=== PATIENT | male | born 1970 | race Caucasian/White ===

== ENCOUNTER 2019-11-28 12:13 | Emergency (ER) | payer MEDICAID, OTHER ==
[~2019-11-28] VITALS: Ht 165.1 cm; Wt 65.5 kg
[~2019-11-28 12:13] MED LIST: NO HOME MEDS
[2019-11-28] MEDS ORDERED: LIDOcaine 1% W/epiNEPHrine 1:200,000 10ml vial IJ ONE (12:35)
[2019-11-28] MEDS ORDERED: BACDS PO (12:54)
[2019-11-28] MEDS ORDERED: CEPH250T PO (12:54)
[2019-11-28 14:15] VITALS: BP 131/82
== END 2019-11-28 14:18 | disposition home or self-care (01) ==
LOC: ER 12:13
DX: L02.413 Cutaneous abscess of right upper limb (principal); M25.531 Pain in right wrist; M25.431 Effusion, right wrist
CPT/HCPCS: 10060; 99283

== ENCOUNTER 2022-03-19 10:24 | Inpatient (IN) | payer MEDICAID ==
[~2022-03-19] VITALS: Ht 180.3 cm; Wt 63.0 kg
[2022-03-19] MEDS ORDERED: BENZ-38 PO (12:44)
[2022-03-19] MEDS ORDERED: ALBU8HFA PO (12:44)
[2022-03-19 14:13] LABS: URINE AMPHETAMINE SCREEN POSITIVE (Neg); URINE BARBITUATE SCREEN NEGATIVE (Neg); URINE BENZODIAZEPINES SCREEN NEGATIVE (Neg); URINE CANNABINOID SCREEN POSITIVE (Neg); URINE COCAINE SCREEN NEGATIVE (Neg); URINE METHADONE SCREEN NEGATIVE (Neg); URINE OPIATE SCREEN NEGATIVE (Neg); URINE PHENCYCLIDINE SCREEN NEGATIVE (Neg)
[2022-03-19 14:27] LABS: BASOPHILS % (AUTO) 0.2 % (0-1); EOSINOPHILS # (AUTO) 0.1 X10'3 (0-0.9); EOSINOPHILS % (AUTO) 0.4 % (0-6); HEMATOCRIT 36.3 % (42.0-52.0); HEMOGLOBIN 12.1 g/dl (14.0-17.9); LYMPHOCYTES # (AUTO) 1.1 X10'3 (1.1-4.8); LYMPHOCYTES % (AUTO) 5.3 % (21-51); MEAN CORPUSCULAR HEMOGLOBIN 28.8 PG (27.0-31.0); MEAN CORPUSCULAR HGB CONC 33.2 g/dL (33.0-36.5); MEAN CORPUSCULAR VOLUME 86.7 FL (78-98); MEAN PLATELET VOLUME 7.3 FL (7.4-10.4); MONOCYTES # (AUTO) 1.2 X10'3 (0-0.9); MONOCYTES % (AUTO) 5.8 % (2-12); NEUTROPHILS # (AUTO) 18.9 X10'3 (1.8-7.7); NEUTROPHILS % (AUTO) 88.3 % (42-75); PLATELET COUNT 434 X10'3 (140-440); RED BLOOD COUNT 4.19 X10'6 (4.70-6.10); RED CELL DISTRIBUTION WIDTH 13.7 % (11.5-14.5); WHITE BLOOD COUNT 21.4 X10'3 (4.5-11.0)
[2022-03-19 14:31] LABS: D-DIMER 3.84 MG/L FEU (0-0.50)
[2022-03-19 14:34] LABS: ALANINE AMINOTRANSFERASE 43 U/L (12-78); ALBUMIN 2.1 G/DL (3.4-5.0); ALBUMIN/GLOBULIN RATIO 0.5 (1.1-1.5); ALKALINE PHOSPHATASE 106 IU/L (46-116); ANION GAP 5 (8-16); ASPARTATE AMINO TRANSFERASE 32 U/L (10-37); BILIRUBIN,TOTAL 0.4 MG/DL (0.1-1.0); BLOOD UREA NITROGEN 13 MG/DL (7-18); BUN/CREATININE RATIO 18.1 (5.4-32.0); CALCIUM 8.8 MG/DL (8.5-10.1); CHLORIDE 100 MMOL/L (99-107); CREATININE 0.72 MG/DL (0.60-1.10); GLUCOSE 153 MG/DL (70-104); POTASSIUM 3.5 MMOL/L (3.5-5.1); SODIUM 134 MMOL/L (135-145); TOTAL CARBON DIOXIDE 28.8 MMOL/L (24-32); TOTAL PROTEIN 6.1 G/DL (6.4-8.2); eGFR > 90 ML/MIN
[2022-03-19] MEDS ORDERED: normal saline 1000ML IV soln IV ONE (14:55)
[2022-03-19] MEDS ORDERED: CefTRIAXone 2gm/D5W 50ml BAG 50 ML IV ONE (14:55)
--- NOTE | 2022-03-19 15:13 | NUR ---
PT REFUSED IV.
[2022-03-19] MEDS ORDERED: acetaminophen 325mg tablet PO ONE (15:30)
[2022-03-19] MEDS ORDERED: acetaminophen 650mg rectal suppository RC PRN (16:55)
[2022-03-19] MEDS ORDERED: acetaminophen 325mg tablet PO PRN ×2 (16:55)
[2022-03-19] MEDS ORDERED: ondansetron 4mg rapidly disintigrating tab PO PRN (16:55)
[2022-03-19] MEDS ORDERED: potassium Cl 20 mEq SR tablet PO PRN ×2 (16:55)
[2022-03-19] MEDS ORDERED: magnesium 4gm in 100ml NS 100 ML IV PRN (16:55)
[2022-03-19] MEDS ORDERED: magnesium Cl slow-release 64mg tablet PO PRN (16:55)
[2022-03-19] MEDS ORDERED: mag hydrox/Alum hydrox/simeth 30ml oral suspension PO PRN (16:55)
[2022-03-19] MEDS ORDERED: albuterol 2.5 MG/3 ML nebule NEB PRN (16:55)
[2022-03-19] MEDS ORDERED: magnesium hydroxide 30ml (MOM) UD suspension PO PRN (16:55)
[2022-03-19] MEDS ORDERED: potassium Cl 40MEQ/1/2NS 520ml 520 ML IV PRN (16:55)
[2022-03-19] MEDS ORDERED: ondansetron/PF 4mg/2ml inj IV PRN (16:55)
[2022-03-19] MEDS ORDERED: iohexol 350MG/ML 100ml bottle IV ONE (16:57)
--- NOTE | 2022-03-19 17:00 | NUR ---
NOTIFIED PROVIDER OPPEZZO THAT PT COMPLAINS OF 10/10 HEADACHE. PT REPORTS PAIN IN FRONTAL LOBE, ASSOCIATED WITH BLURRED VISION AND DIZZINESS. PT REPORTS SYMPTOMS STARTED 1 WEEK AGO.
[2022-03-19] MEDS ORDERED: azithromycin/NS 500mg/250ml 250 ML IV ONE (17:15)
[2022-03-19] MEDS: normal saline 1000ml 1,000 ML IV SCH ×2 (19:11→20:54)
[2022-03-19] MEDS: docusate sod 100mg capsule PO SCH (19:19)
[2022-03-19] MEDS: K and/or MAG REPLACEMENT MC SCH (19:19)
[2022-03-19] MEDS: enoxaparin 40mg/0.4ml syringe SQ SCH (20:10)
--- NOTE | 2022-03-19 20:15 | NUR ---
Received report from RESEARCH MECHANICDARÍO Norton. Patient to follow shortly.
--- NOTE | 2022-03-19 20:30 | NUR ---
Patient arrived to floor on a gurney. Ambulated to bed. Patient not in any pain or distress at this time, just moaning,groaning and coughing .
[2022-03-19 20:45] VITALS: BP 134/89
[2022-03-19] MEDS ORDERED: temazepam 15mg capsule PO PRN (21:00)
[2022-03-19 22:00] VITALS: BP 144/91
--- NOTE | 2022-03-20 01:08 | NUR ---
When patient first arrived I explained the admit process. Patient did allow for a 2RN skin check and MRSA swab, but then stated, "I just want to sleep please".
--- NOTE | 2022-03-20 01:52 | NUR ---
sputum sample collected and sent to pharmacy.
--- NOTE | 2022-03-20 02:00 | NUR ---
Patient placed on 2L O2 via NC for low sats of 87-90. Sats went up to 95/96%. Will continue to monitor.
--- NOTE | 2022-03-20 06:53 | NUR ---
Patient in room [facility]. I have received report from ELÍAS CHANEL and had the opportunity to ask questions and assume patient care.
[2022-03-20 07:17] VITALS: BP 136/84
[2022-03-20] MEDS: K and/or MAG REPLACEMENT MC SCH ×2 (08:00→20:00)
[2022-03-20] MEDS: azithromycin 250mg tablet PO SCH (08:02)
[2022-03-20] MEDS: docusate sod 100mg capsule PO SCH ×2 (08:02→20:13)
[2022-03-20] MEDS: normal saline 1000ml 1,000 ML IV SCH ×2 (08:03→19:32)
[2022-03-20 11:00] VITALS: BP_SYST 122; BP_SYST 134; BP_DIAS 43; BP_DIAS 73
[2022-03-20] MEDS: CefTRIAXone/D5W-Rocephin 1gm 50 ML IV SCH (14:40)
[2022-03-20 18:00] VITALS: BP 145/101
--- NOTE | 2022-03-20 18:31 | NUR ---
Problems reprioritized. Patient report given, questions answered & plan of care reviewed with Roseanna CHANEL.
--- NOTE | 2022-03-20 18:35 | NUR ---
Patient in room [facility]. I have received report from Yoel CHANEL and had the opportunity to ask questions and assume patient care.
[2022-03-20] MEDS: enoxaparin 40mg/0.4ml syringe SQ SCH (20:15)
[2022-03-20 22:00] VITALS: BP 144/84
[2022-03-20] MEDS ORDERED: LORazepam 2 mg/ml vial IV PRN (23:10)
--- NOTE | 2022-03-21 01:17 | NUR ---
At around 2014, pt. c/o pain to the upper left chest. Stat EKg and troponin taken. No signs of [place]. Patient stated not long after, that the pain had gone.
[2022-03-21] MEDS: normal saline 1000ml 1,000 ML IV SCH ×2 (04:58→18:55)
--- NOTE | 2022-03-21 06:25 | NUR ---
Problems reprioritized. Patient report given, questions answered & plan of care reviewed with Yoel RN.
--- NOTE | 2022-03-21 06:27 | NUR ---
Patient in room [facility]. I have received report from Roseanna CHANEL and had the opportunity to ask questions and assume patient care.
[2022-03-21 06:32] LABS: BASOPHILS # (AUTO) 0.2 X10'3 (0-0.2); EOSINOPHILS # (AUTO) 0.3 X10'3 (0-0.9); HEMATOCRIT 35.6 % (42.0-52.0); LYMPHOCYTES # (AUTO) 1.9 X10'3 (1.1-4.8); LYMPHOCYTES % (AUTO) 11.3 % (21-51); MEAN CORPUSCULAR HEMOGLOBIN 29.3 PG (27.0-31.0); MEAN CORPUSCULAR HGB CONC 33.8 g/dL (33.0-36.5); MEAN CORPUSCULAR VOLUME 86.6 FL (78-98); MEAN PLATELET VOLUME 7.4 FL (7.4-10.4); MONOCYTES # (AUTO) 1.3 X10'3 (0-0.9); MONOCYTES % (AUTO) 7.7 % (2-12); PLATELET COUNT 511 X10'3 (140-440); RED BLOOD COUNT 4.11 X10'6 (4.70-6.10); RED CELL DISTRIBUTION WIDTH 13.9 % (11.5-14.5); WHITE BLOOD COUNT 16.6 X10'3 (4.5-11.0)
[2022-03-21 06:38] VITALS: BP 135/88
[2022-03-21 06:39] LABS: ALANINE AMINOTRANSFERASE 67 U/L (12-78); ALBUMIN 1.8 G/DL (3.4-5.0); ALBUMIN/GLOBULIN RATIO 0.4 (1.1-1.5); ALKALINE PHOSPHATASE 90 IU/L (46-116); ASPARTATE AMINO TRANSFERASE 68 U/L (10-37); BILIRUBIN,TOTAL 0.2 MG/DL (0.1-1.0); BLOOD UREA NITROGEN 11 MG/DL (7-18); BUN/CREATININE RATIO 19.3 (5.4-32.0); CALCIUM 8.7 MG/DL (8.5-10.1); CREATININE 0.57 MG/DL (0.60-1.10); GLUCOSE 101 MG/DL (70-104); MAGNESIUM 1.8 MG/DL (1.5-2.4); TOTAL CARBON DIOXIDE 27.3 MMOL/L (24-32); eGFR > 90 ML/MIN
[2022-03-21 07:05] LABS: ANION GAP 8 (8-16); CHLORIDE 105 MMOL/L (99-107); POTASSIUM 3.7 MMOL/L (3.5-5.1); SODIUM 140 MMOL/L (135-145)
[2022-03-21 07:11] LABS: PLATELET ESTIMATE INCREASED; TOTAL CELLS COUNTED 100
[2022-03-21] MEDS: docusate sod 100mg capsule PO SCH ×2 (07:53→19:23)
[2022-03-21] MEDS: azithromycin 250mg tablet PO SCH (07:54)
[2022-03-21] MEDS: HYDROcodone/acetaminophen 5mg/325mg tablet PO PRN ×3 (07:55→23:48)
[2022-03-21] MEDS: K and/or MAG REPLACEMENT MC SCH ×2 (08:00→20:00)
--- NOTE | 2022-03-21 09:35 | NUR ---
Initial: pt admitted w/ PNA and sepsis per EMR. Currently on Regular diet w/ 100% intake of meals though only partially meeting est protein needs. Will provide double protein BID w/ meals. Pt appears WD/WN per MD note. No edema noted. M 03/20 receiving routine colace. Will continue to monitor. Recs: 1. Continue Regular diet as tolerated 2. Double protein BIDBD 3. Bowel care per rx 4. Scaled wts Addendum: 03/21/22 at [address] Amended: Links added.
[2022-03-21 11:08] VITALS: BP 151/87
[2022-03-21] MEDS: CefTRIAXone/D5W-Rocephin 1gm 50 ML IV SCH (14:29)
[2022-03-21 18:00] VITALS: BP 157/96
--- NOTE | 2022-03-21 18:27 | NUR ---
Problems reprioritized. Patient report given, questions answered & plan of care reviewed with Mary CHANEL.
[2022-03-21] MEDS: enoxaparin 40mg/0.4ml syringe SQ SCH (19:22)
[2022-03-21 22:00] VITALS: BP 156/90
[2022-03-22] MEDS: normal saline 1000ml 1,000 ML IV SCH ×2 (02:07→15:50)
[2022-03-22 06:21] LABS: BASOPHILS # (AUTO) 0.2 X10'3 (0-0.2); BASOPHILS % (AUTO) 1.4 % (0-1); EOSINOPHILS # (AUTO) 0.4 X10'3 (0-0.9); EOSINOPHILS % (AUTO) 2.9 % (0-6); HEMATOCRIT 36.8 % (42.0-52.0); HEMOGLOBIN 12.2 g/dl (14.0-17.9); LYMPHOCYTES # (AUTO) 2.1 X10'3 (1.1-4.8); LYMPHOCYTES % (AUTO) 15.3 % (21-51); MEAN CORPUSCULAR HEMOGLOBIN 28.7 PG (27.0-31.0); MEAN CORPUSCULAR HGB CONC 33.2 g/dL (33.0-36.5); MEAN CORPUSCULAR VOLUME 86.5 FL (78-98); MEAN PLATELET VOLUME 7.3 FL (7.4-10.4); MONOCYTES % (AUTO) 7.6 % (2-12); NEUTROPHILS # (AUTO) 9.8 X10'3 (1.8-7.7); NEUTROPHILS % (AUTO) 72.8 % (42-75); PLATELET COUNT 587 X10'3 (140-440); RED BLOOD COUNT 4.25 X10'6 (4.70-6.10); RED CELL DISTRIBUTION WIDTH 13.8 % (11.5-14.5); WHITE BLOOD COUNT 13.5 X10'3 (4.5-11.0)
--- NOTE | 2022-03-22 06:27 | NUR ---
Problems reprioritized. Patient report given, questions answered & plan of care reviewed with DARÍO Diallo.
[2022-03-22 06:46] LABS: ALANINE AMINOTRANSFERASE 118 U/L (12-78); ALBUMIN 1.7 G/DL (3.4-5.0); ALBUMIN/GLOBULIN RATIO 0.4 (1.1-1.5); ALKALINE PHOSPHATASE 92 IU/L (46-116); ANION GAP 10 (8-16); ASPARTATE AMINO TRANSFERASE 102 U/L (10-37); BILIRUBIN,TOTAL 0.2 MG/DL (0.1-1.0); BLOOD UREA NITROGEN 15 MG/DL (7-18); CALCIUM 8.3 MG/DL (8.5-10.1); CHLORIDE 103 MMOL/L (99-107); GLUCOSE 99 MG/DL (70-104); POTASSIUM 3.9 MMOL/L (3.5-5.1); SODIUM 139 MMOL/L (135-145); eGFR > 90 ML/MIN
[2022-03-22] MEDS: K and/or MAG REPLACEMENT MC SCH ×2 (08:00→20:00)
[2022-03-22] MEDS: azithromycin 250mg tablet PO SCH (08:34)
[2022-03-22] MEDS: docusate sod 100mg capsule PO SCH ×2 (08:34→20:00)
[2022-03-22 08:52] LABS: PLATELET ESTIMATE INCREASED; TOTAL CELLS COUNTED 100
[2022-03-22 09:21] VITALS: BP 159/101
[2022-03-22] MEDS: HYDROcodone/acetaminophen 5mg/325mg tablet PO PRN ×2 (09:42→15:49)
[2022-03-22 11:00] VITALS: BP 148/90
[2022-03-22] MEDS: CefTRIAXone/D5W-Rocephin 1gm 50 ML IV SCH (14:27)
--- NOTE | 2022-03-22 16:43 | NUR ---
PAGER ID: [phone] MESSAGE: Yoel Surg [phone] re: [id number] Patient stated that you were going to saline lock him and he keeps asking about it. Would you like me to stop his fluids? Thanks Yoel.
--- NOTE | 2022-03-22 18:22 | NUR ---
Problems reprioritized. Patient report given, questions answered & plan of care reviewed with Mary CHANEL.
[2022-03-22] MEDS: enoxaparin 40mg/0.4ml syringe SQ SCH (20:00)
--- NOTE | 2022-03-23 06:18 | NUR ---
Problems reprioritized. Patient report given, questions answered & plan of care reviewed with Danie Tirado.
[2022-03-23 06:54] LABS: BASOPHILS % (AUTO) 0.8 % (0-1); EOSINOPHILS % (AUTO) 2.5 % (0-6); HEMATOCRIT 41.4 % (42.0-52.0); HEMOGLOBIN 13.5 g/dl (14.0-17.9); LYMPHOCYTES % (AUTO) 14 % (21-51); MEAN CORPUSCULAR HEMOGLOBIN 28.5 PG (27.0-31.0); MEAN CORPUSCULAR HGB CONC 32.7 g/dL (33.0-36.5); MEAN CORPUSCULAR VOLUME 87.1 FL (78-98); MONOCYTES % (AUTO) 9.4 % (2-12); NEUTROPHILS % (AUTO) 73.3 % (42-75); PLATELET COUNT 742 X10'3 (140-440); RED BLOOD COUNT 4.75 X10'6 (4.70-6.10); RED CELL DISTRIBUTION WIDTH 13.7 % (11.5-14.5); WHITE BLOOD COUNT 13.4 X10'3 (4.5-11.0)
[2022-03-23 06:55] LABS: BASOPHILS # (AUTO) 0.1 X10'3 (0-0.2); EOSINOPHILS # (AUTO) 0.3 X10'3 (0-0.9); LYMPHOCYTES # (AUTO) 1.9 X10'3 (1.1-4.8); MONOCYTES # (AUTO) 1.3 X10'3 (0-0.9); NEUTROPHILS # (AUTO) 9.8 X10'3 (1.8-7.7)
[2022-03-23 07:16] LABS: ANION GAP 7 (8-16); BLOOD UREA NITROGEN 18 MG/DL (7-18); BUN/CREATININE RATIO 25.4 (5.4-32.0); CHLORIDE 102 MMOL/L (99-107); CREATININE 0.71 MG/DL (0.60-1.10); GLUCOSE 89 MG/DL (70-104); POTASSIUM 4.2 MMOL/L (3.5-5.1); SODIUM 137 MMOL/L (135-145); TOTAL CARBON DIOXIDE 27.8 MMOL/L (24-32); eGFR > 90 ML/MIN
[2022-03-23 07:17] LABS: ALBUMIN 2.1 G/DL (3.4-5.0); ALBUMIN/GLOBULIN RATIO 0.4 (1.1-1.5); ASPARTATE AMINO TRANSFERASE 98 U/L (10-37); BILIRUBIN,TOTAL 0.2 MG/DL (0.1-1.0); CALCIUM 8.7 MG/DL (8.5-10.1); MAGNESIUM 2.2 MG/DL (1.5-2.4); TOTAL PROTEIN 6.9 G/DL (6.4-8.2)
[2022-03-23 07:18] LABS: ALANINE AMINOTRANSFERASE 159 U/L (12-78); ALKALINE PHOSPHATASE 106 IU/L (46-116)
[2022-03-23] MEDS: azithromycin 250mg tablet PO SCH (07:51)
[2022-03-23] MEDS: docusate sod 100mg capsule PO SCH (07:51)
[2022-03-23] MEDS: K and/or MAG REPLACEMENT MC SCH (07:51)
[2022-03-23 09:00] LABS: PLATELET ESTIMATE INCREASED; TOTAL CELLS COUNTED 100
--- NOTE | 2022-03-23 09:18 | NUR ---
AGER ID: [phone] MESSAGE: RE MARIUSZ CALLOWAY RM 349B- ANXIOUS TO DISCHARGE, STATING HE IS GOING TO AMA IF NOT ORDERED DISCHARGE. WERE YOU PLANNING TO DISCHARGE? THANK YOU AND
[2022-03-23] MEDS ORDERED: LEVO750T68 PO (11:09)
== END 2022-03-23 11:44 | disposition home or self-care (01) | DRG 720 ==
LOC: ER 10:25 → ED HOLD 17:11 → EDBEDREQ 20:00 → SUR 3N 20:30
PROVIDERS: ADMIT Family Medicine; ATTEND Family Medicine
PROC: B32T1ZZ Computerized Tomography (CT Scan) of Left Pulmonary Artery using Low Osmolar Contrast (ICD-10-PCS; principal; 2022-03-19)
PROC: B3201ZZ Computerized Tomography (CT Scan) of Thoracic Aorta using Low Osmolar Contrast (ICD-10-PCS; 2022-03-19)
PROC: B32S1ZZ Computerized Tomography (CT Scan) of Right Pulmonary Artery using Low Osmolar Contrast (ICD-10-PCS; 2022-03-19)
DX: A41.9 Sepsis, unspecified organism (principal); E87.1 Hypo-osmolality and hyponatremia; J18.9 Pneumonia, unspecified organism; Z20.822 Contact with and (suspected) exposure to COVID-19; R79.89 Other specified abnormal findings of blood chemistry; F15.10 Other stimulant abuse, uncomplicated; F17.210 Nicotine dependence, cigarettes, uncomplicated; F41.9 Anxiety disorder, unspecified; R09.02 Hypoxemia; Z59.00 Homelessness unspecified
CPT/HCPCS: 36415; 71046; 71275; 80053; 80305; 83605; 83735; 84145; 84484; 85007; 85025; 85379; 87040; 87070; 87081; 87502; 87503; 87635; 94760; 96365; 99285; A4615; A6258; C9803; G0378; J0456; J0696; J1650; J3490; J7030; Q9967